=== PATIENT | male | born 1960 | race Caucasian/White ===

== ENCOUNTER 2020-01-29 15:43 | Emergency (ER) | payer BC, SELFPAY ==
[2020-01-29 15:55] VITALS: BP 139/67; PULSE 76; RESP 16; O2SAT 96
--- NOTE | 2020-01-29 16:35 | ED.EAR ---
HPI - Ear Problem General Chief complaint: Ear Stated complaint: wax in ear Time Seen by Provider: 01/29/20 16:35 Source: patient Mode of arrival: ambulatory Limitations: no limitations History of Present Illness HPI Narrative: Shahzad Gomez is a 59 yo male with PMH of [place], bypass, HTN, depression, high cholesterol, who comes to express care with right ear pain who works at [employer] and states that his ear is muffled x 1 day Related Data Home Medications Medication Instructions Recorded Confirmed amlodipine 01/29/20 clopidogrel 01/29/20 duloxetine mg PO 01/29/20 furosemide 01/29/20 hydrochlorothiazide 01/29/20 isosorbide mononitrate mg PO 01/29/20 metoprolol tartrate 01/29/20 quetiapine 01/29/20 rosuvastatin mg 01/29/20 spironolactone 01/29/20 Allergies Allergy/AdvReac Type Severity Reaction Status Date / Time No Known Allergies Allergy Unverified 05/03/14 11:27 Review of Systems Review of Systems: Narrative: CONSTITUTIONAL: Denies fever, chills, sweats. EYES: Denies visual changes, redness, discharge. ENT: Denies rhinorrhea, congestion, sore throat, otalgia. Has Q-tip in right ear lodged by TM CARDIOVASCULAR: Denies chest pain, palpitations, edema. RESPIRATORY: Denies dyspnea, wheezing, cough GASTROINTESTINAL: Denies abdominal pain, nausea, vomiting, diarrhea. GENITOURINARY: Denies dysuria, hematuria, abnormal discharge SKIN: Denies rash or itching. NEUROLOGIC: Denies numbness, or focal weakness. PSYCHIATRIC: Denies anxiety or depression. [facility] Past Medical History Medical History (Updated 01/29/20 @ 17:29 by Sarah Jensen CNP) Myocardial infarction Surgical History Surgical History (Updated 01/29/20 @ 17:24 by Sarah Jensen CNP) Aortocoronary bypass status Family History Family History Mother Diabetes mellitus Hypertension Father Diabetes mellitus Hypertension Acute myocardial infarction Other Family history of congenital heart disease Family history of malignant neoplasm Social History Social History (Updated 01/29/20 @ 17:24 by Sarah Jensen CNP) Smoking status: Former smoker Alcohol intake: current Comments At time of signature, I agree with nursing past medical, surgical, social and family history. There is no relevant family history pertinent to the presenting complaint. Exam Narrative: Exam Narrative: GENERAL: This is a well-nourished, well-developed patient, in mild distress. HEAD: normocephalic, atraumatic. EYES: Sclera clear/white. Vision is grossly intact. EARS: External ears white foreign body against right TM with cerumen. Hearing grossly intact. NOSE: External nose normal without nasal discharge, nares without redness, no rhinorrhea. THROAT: Mucous membranes moist, NECK: Neck supple, CARDIOVASCULAR: Regular rate and rhythm without murmurs, gallops, or rubs. RESPIRATORY: coarse to auscultation. Breath sounds equal bilaterally. No wheezes, rales, or rhonchi. GASTROINTESTINAL: Abdomen soft, non-tender, SKIN: warm, intact with no suspicious lesions or rash, good texture and turgor. NEURO: awake, alert, and oriented to person, place and time. There were no obvious focal neurologic abnormalities. Steady gait EXTREMITIES: Normal range of motion. BACK: Nontender without deformity Course Course Emergency Course: Daily use of Debrox Vital Signs Vital signs: Vital Signs Pulse Rate 76 01/29/20 15:55 Respiratory Rate 16 01/29/20 15:55 Blood Pressure 139/67 01/29/20 15:55 Pulse Oximetry 96 01/29/20 15:55 Pulse Rate 76 01/29/20 15:55 Respiratory Rate 16 01/29/20 15:55 Blood Pressure 139/67 01/29/20 15:55 Pulse Oximetry 96 01/29/20 15:55 Procedures FB Removal Ear Foreign Body #1: Foreign Body Removal Date: 01/29/20 Foreign Body Removal Time: 17:27 Location: ear canal (R) Foreign Body Suspected: other (Q-tip tip)
--- NOTE | 2020-01-29 17:38 | PC.NURSE ---
1720 ear irrigation set up done.
--- NOTE | 2020-01-29 17:41 | PC.NURSE ---
1725 right ear irrigation done and fb removed by [employer] technician. stated right ear feels much better.
== END 2020-01-29 17:44 | disposition home or self-care (01) ==
PROVIDERS: Emergency Provider Nurse Practitioner; PCP Student in an Organized Health Care Education/Training Program
DX: T16.1XXA Foreign body in right ear, initial encounter (principal); I25.2 Old myocardial infarction; I10 Essential (primary) hypertension; E78.00 Pure hypercholesterolemia, unspecified
CPT/HCPCS: 69200; 99212; G0463

== ENCOUNTER → 2020-05-26 15:45 | Outpatient (CLI) | payer BC, SELFPAY ==
--- NOTE | ~2020-05-26 | CT_ITS ---
EXAMINATION: CT chest wo con DATE: 05/26/2020 15:59 INDICATION: Pulmonary nodule TECHNIQUE: Computed tomography (CT) of the chest was performed without intravenous contrast. The dose -length product (DLP) was 280.95 mGy-cm. Automated exposure control and iterative reconstruction tech [employer] were employed. COMPARISON: 10/02/2017 FINDINGS: There is a stable 4 mm subpleural nodule of the left lower lobe, consistent with old granul omatous disease. Stable fissural lymph nodes are noted on the right. No new or suspicious pulmonary n odule is identified. There is mild dependent atelectasis. No focal airspace opacities are identified. There is no pleural effusion or pneumothorax. Changes of coronary artery bypass grafting are noted. No pathologically enlarged thoracic lymph nodes are identified. The heart size is normal. Again noted is a small right posterior diaphragmatic hernia containing fat. There is a small sliding hiatal [place] with circumferential wall thickening of the distal esophagus. There is mild thoracic spondylosis. There is a 2 mm nonobstructing stone of the right kidney upper pole. IMPRESSION: 1. Stable 4 mm nodule of the left lower lobe, consistent with old granulomatous disease. 2. Small sliding hiatal hernia with circumferential wall thickening of the distal esophagus. Consider evaluation with endoscopy. Reviewed, dictated and finalized at location B. IMPRESSION: 1. Stable 4 mm nodule of the left lower lobe, consistent with old granulomatous disease. 2. Small sliding hiatal hernia with circumferential wall thickening of the dist al esophagus. Consider evaluation with endoscopy.
== END ==
PROVIDERS: PCP Student in an Organized Health Care Education/Training Program; Visit Provider Student in an Organized Health Care Education/Training Program
DX: R91.1 Solitary pulmonary nodule (principal); K44.9 Diaphragmatic hernia without obstruction or gangrene
CPT/HCPCS: 71250

== ENCOUNTER 2020-05-26 16:05 | Outpatient (CLI) | payer BC, SELFPAY ==
[2020-05-26 16:22] LABS: Basophils Percent Auto 0.4 % (0.2-1.2); Eosinophils Absolute Auto 0.1 K/mm3 (0-0.3); Eosinophils Percent Auto 1.9 % (0-4.4); Hematocrit 43.3 % (42.0-52.0); Hemoglobin 15.2 g/dL (14.0-18.0); Immature Granulocyte Absolute 0.01 K/mm3 (0.00-0.031); Immature Granulocyte Percent A 0.1 % (0-0.5); Lymphocytes Absolute Auto 1.99 K/mm3 (0.9-3.2); Mean Corpuscular HGB Conc 35.1 g/dl (32-36); Mean Corpuscular Volume 85.4 fl (80-100); Mean Platelet Volume 9.9 fl (7.4-10.4); Monocytes Absolute Auto 0.9 K/mm3 (0.1-0.6); Neutrophils Absolute Auto 3.8 K/mm3 (1.3-6.7); Neutrophils Percent Auto 55.6 % (45.5-73.1); Platelet Count Result 221 k/mm3 (150-375); Red Blood Count 5.07 M/mm3 (4.6-6.20); White Blood Count 6.9 K/mm3 (4.5-10.0)
[2020-05-26 17:42] LABS: Prostate Specific Antigen 0.5 ng/mL (< OR = 4.0)
[2020-05-26 17:48] LABS: Vitamin D 25 Hydroxy 48.5 ng/mL
[2020-05-26 18:09] LABS: Alanine Aminotransferase 30 U/L (4-50); Albumin Level 4.5 g/dL (3.5-5.1); Alkaline Phosphatase 69 U/L (38-126); Anion Gap 12 mmol/L (8-16); Aspartate Amino Transferase 34 U/L (17-59); Bilirubin,Total 1.9 mg/dL (0.2-1.3); Blood Urea Nitrogen 22 mg/dL (9-20); Calcium 9.2 mg/dL (8.4-10.2); Carbon Dioxide 27 mmol/L (22-30); Chloride 97 mmol/L (98-107); Cholesterol 158 mg/dL (0-200); Creatine Kinase 275 U/L (55-170); Estimated Glomerular Filt Rate > 60; Glucose 109 mg/dL (75-110); HDL Direct 39 mg/dL; LDL Cholesterol Direct 82 mg/dL; Potassium 3.5 mmol/L (3.4-5.0); Sodium 136 mmol/L (137-145); Triglycerides 254 mg/dL (<150)
== END 2020-05-26 16:06 | disposition home or self-care (01) ==
PROVIDERS: PCP Student in an Organized Health Care Education/Training Program; Visit Provider Student in an Organized Health Care Education/Training Program
DX: Z13.228 Encounter for screening for other metabolic disorders (principal); Z13.29 Encounter for screening for other suspected endocrine disorder; Z13.0 Encounter for screening for diseases of the blood and blood-forming organs and certain disorders involving the immune mechanism; Z12.5 Encounter for screening for malignant neoplasm of prostate; I10 Essential (primary) hypertension; E78.00 Pure hypercholesterolemia, unspecified
CPT/HCPCS: 36415; 80053; 80061; 82306; 82550; 84153; 84443; 85025; G0103

== ENCOUNTER 2020-06-08 14:58 | Outpatient (CLI) | payer BC, SELFPAY | END 2020-06-08 14:59 | disposition home or self-care (01) | LOC: ANHAUDIO 14:59 | PROVIDERS: PCP Student in an Organized Health Care Education/Training Program; Visit Provider Student in an Organized Health Care Education/Training Program | DX: H90.3 Sensorineural hearing loss, bilateral (principal) | CPT/HCPCS: 92557; 92567 ==

== ENCOUNTER 2020-06-26 10:05 | Emergency (ER) | payer BC, SELFPAY ==
[2020-06-26 10:15] VITALS: BP 152/85; PULSE 64; RESP 16; TEMP 36.9; O2SAT 98
--- NOTE | 2020-06-26 10:18 | ED.ANIMALBIT ---
HPI - Animal Bite General Chief Complaint: Skin/Abscess/Foreign Body Stated Complaint: insect bite Time Seen by Provider: 06/26/20 10:18 Source: patient Mode of arrival: ambulatory Limitations: no limitations History of Present Illness HPI narrative: Shahzad Gomez is a 59 yo male with a PMH of HTN, high cholesterol, here with a bee sting to right cheek yesterday evening. They are swollen and goes from cheek to submandibular area; patient states is pruritic Related Data Home Medications Medication Instructions Recorded Confirmed amlodipine 10 mg PO DAILY 01/29/20 06/26/20 clopidogrel 75 mg PO DAILY 01/29/20 06/26/20 duloxetine 30 mg PO BID 01/29/20 06/26/20 hydrochlorothiazide 25 mg PO DAILY 01/29/20 06/26/20 metoprolol tartrate 50 mg PO DAILY 01/29/20 06/26/20 rosuvastatin 40 mg PO DAILY 01/29/20 06/26/20 aspirin 81 mg PO DAILY 06/26/20 06/26/20 hydrochlorothiazide 25 mg PO DAILY 06/26/20 06/26/20 omeprazole 20 mg PO DAILY 06/26/20 06/26/20 Allergies Allergy/AdvReac Type Severity Reaction Status Date / Time No Known Allergies Allergy Unverified 05/03/14 11:27 Review of Systems Review of Systems: Narrative: CONSTITUTIONAL: Denies fever, chills, sweats. EYES: Denies visual changes, redness, discharge. ENT: Denies rhinorrhea, congestion, sore throat, otalgia. CARDIOVASCULAR: Denies chest pain, palpitations, edema. RESPIRATORY: Denies dyspnea, wheezing, cough GASTROINTESTINAL: Denies abdominal pain, nausea, vomiting, diarrhea. GENITOURINARY: Denies dysuria, hematuria, abnormal discharge SKIN: Denies rash or itching. Bee sting to right cheek which is swollen and present NEUROLOGIC: Denies numbness, or focal weakness. PSYCHIATRIC: Denies anxiety or depression. [facility] Past Medical History Medical History Myocardial infarction Surgical History Surgical History Aortocoronary bypass status Family History Family History Mother Diabetes mellitus Hypertension Father Diabetes mellitus Hypertension Acute myocardial infarction Other Family history of congenital heart disease Family history of malignant neoplasm Social History Social History Smoking status: Former smoker Alcohol intake: current Comments At time of signature, I agree with nursing past medical, surgical, social and family history. There is no relevant family history pertinent to the presenting complaint. Exam Narrative: Exam Narrative: GENERAL: This is a well-nourished, well-developed patient, in mild distress. HEAD: normocephalic, atraumatic. EYES: Sclera clear/white. Vision is grossly intact. EARS: External ears normal, Hearing grossly intact. NOSE: External nose normal without nasal discharge, nares without redness, no rhinorrhea. THROAT: Mucous membranes moist, posterior pharynx clear- swelling of R cheek that goes into submandibular area- no tenderness, indurated NECK: Neck supple, non-tender, bilateral induration CARDIOVASCULAR: Regular rate and rhythm without murmurs, gallops, or rubs. RESPIRATORY: Clear to auscultation. Breath sounds equal bilaterally. No wheezes, rales, or rhonchi. GASTROINTESTINAL: Abdomen soft, SKIN: warm, intact with no suspicious lesions or rash, good texture and turgor. NEURO: awake, alert, and oriented to person, place and time. There were no obvious focal neurologic abnormalities. Steady gait EXTREMITIES: Normal range of motion. BACK: Nontender without deformity Course Course Emergency Course: Came to express care with bee sting that occurred yesterday to face Given Solu-Medrol IM and Pepcid on site Given Medrol Dosepak and Pepcid already has Benadryl at home Follow-up with PCP Vital Signs Vital signs: Vital Signs Temperature 98.4 F 06/26/20 10:15 Pulse Rate 64 10
[2020-06-26] MEDS: methylPREDNISolone SOD SUCC 125 MG VIAL IM (10:26)
[2020-06-26] MEDS: FAMOTIDINE 20 MG TABLET PO (10:26)
== END 2020-06-26 10:48 | disposition home or self-care (01) ==
PROVIDERS: Emergency Provider Nurse Practitioner; PCP Student in an Organized Health Care Education/Training Program
DX: T63.441A Toxic effect of venom of bees, accidental (unintentional), initial encounter (principal); Z87.891 Personal history of nicotine dependence; I25.2 Old myocardial infarction; Z95.1 Presence of aortocoronary bypass graft; I10 Essential (primary) hypertension; E78.00 Pure hypercholesterolemia, unspecified
CPT/HCPCS: 96372; 99213; A9270; G0463; J2930

== ENCOUNTER 2022-03-30 09:24 | Outpatient (CLI) | payer BC, SELFPAY ==
[2022-03-30 09:56] LABS: Alanine Aminotransferase 27 U/L (6-50); Aspartate Amino Transferase 34 U/L (17-59); Cholesterol 178 mg/dL (0-200); Creatine Kinase 247 U/L (55-170); HDL Direct 48 mg/dL; Triglycerides 184 mg/dL (<150)
[2022-03-30 10:08] LABS: LDL Cholesterol Direct 84 mg/dL
== END 2022-03-30 09:25 | disposition home or self-care (01) ==
LOC: ANHLAB 09:26
PROVIDERS: PCP Student in an Organized Health Care Education/Training Program; Visit Provider Internal Medicine Interventional Cardiology
DX: I25.118 Atherosclerotic heart disease of native coronary artery with other forms of angina pectoris (principal)
CPT/HCPCS: 36415; 80061; 82550; 84450; 84460

== ENCOUNTER 2022-05-24 08:32 | Outpatient (CLI) | payer BC, SELFPAY ==
[2022-05-24 08:55] LABS: Basophils Percent Auto 0.5 % (0.2-1.2); Eosinophils Absolute Auto 0.2 K/mm3 (0-0.3); Eosinophils Percent Auto 3.1 % (0-4.4); Hematocrit 43.3 % (42.0-52.0); Hemoglobin 14.4 g/dL (14.0-18.0); Immature Granulocyte Absolute 0.02 K/mm3 (0.00-0.031); Immature Granulocyte Percent A 0.3 % (0-0.5); Lymphocytes Absolute Auto 1.48 K/mm3 (0.9-3.2); Lymphocytes Percent Auto 24.1 % (18.3-44.2); Mean Corpuscular HGB Conc 33.3 g/dl (32-36); Mean Corpuscular Hemoglobin 29.3 pg (26-34); Mean Platelet Volume 9.7 fl (7.4-10.4); Monocytes Absolute Auto 0.8 K/mm3 (0.1-0.6); Monocytes Percent Auto 12.8 % (2.6-8.5); Neutrophils Absolute Auto 3.6 K/mm3 (1.3-6.7); Neutrophils Percent Auto 59.2 % (45.5-73.1); Platelet Count Result 198 k/mm3 (150-375); Red Blood Count 4.92 M/mm3 (4.6-6.20); Red Cell Distribution Width 13.5 % (11.5-14.5); White Blood Count 6.2 K/mm3 (4.5-10.0)
[2022-05-24 09:05] LABS: Alanine Aminotransferase 29 U/L (6-50); Albumin Level 4.2 g/dL (3.5-5.1); Alkaline Phosphatase 70 U/L (38-126); Anion Gap 9 mmol/L (8-16); Aspartate Amino Transferase 27 U/L (17-59); Bilirubin,Total 0.9 mg/dL (0.2-1.3); Blood Urea Nitrogen 12 mg/dL (9-20); Carbon Dioxide 26 mmol/L (22-30); Chloride 101 mmol/L (98-107); Estimated Glomerular Filt Rate > 60; Glucose 138 mg/dL (65-110); Potassium 3.9 mmol/L (3.4-5.0); Sodium 136 mmol/L (137-145)
[2022-05-24 09:34] LABS: Prostate Specific Antigen 3.8 ng/mL (< OR = 4.0)
[2022-05-26 12:54] LABS: Hepatitis C RNA, Quant PCR <15 IU/mL
== END 2022-05-24 08:33 | disposition home or self-care (01) ==
LOC: ANHLAB 08:34
PROVIDERS: PCP Student in an Organized Health Care Education/Training Program; Visit Provider Student in an Organized Health Care Education/Training Program
DX: Z00.00 Encounter for general adult medical examination without abnormal findings (principal); Z13.29 Encounter for screening for other suspected endocrine disorder; Z13.228 Encounter for screening for other metabolic disorders; Z13.0 Encounter for screening for diseases of the blood and blood-forming organs and certain disorders involving the immune mechanism; Z11.59 Encounter for screening for other viral diseases; Z12.5 Encounter for screening for malignant neoplasm of prostate
CPT/HCPCS: 36415; 80053; 84153; 84443; 85025; 87522; G0103

== ENCOUNTER 2022-09-24 13:48 | Outpatient (CLI) | payer BC, SELFPAY ==
[2022-09-24 15:02] LABS: Vitamin D 25 Hydroxy 33.6 ng/mL
== END 2022-09-24 13:49 | disposition home or self-care (01) ==
LOC: ANHLAB 13:50
PROVIDERS: PCP Student in an Organized Health Care Education/Training Program; Visit Provider Student in an Organized Health Care Education/Training Program
DX: R53.83 Other fatigue (principal)
CPT/HCPCS: 36415; 82306; 82607

== ENCOUNTER 2022-10-25 09:29 | Outpatient (CLI) | payer BC, SELFPAY ==
[2022-10-25 10:43] LABS: Cholesterol 240 mg/dL (0-200); Creatine Kinase 75 U/L (55-170); HDL Direct 38 mg/dL; Triglycerides 296 mg/dL (<150)
[2022-10-25 10:54] LABS: LDL Cholesterol Direct 130 mg/dL
== END 2022-10-25 09:30 | disposition home or self-care (01) ==
LOC: ANHLAB 09:31
PROVIDERS: PCP Student in an Organized Health Care Education/Training Program; Visit Provider Hospitalist
DX: E78.2 Mixed hyperlipidemia (principal)
CPT/HCPCS: 36415; 80061; 82550